=== PATIENT | female | born 2000 | race Caucasian/White ===

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

== ENCOUNTER 2019-12-16 22:45 | Emergency (ER) | payer BC ==
[~2019-12-16] VITALS: Ht 165.1 cm; Wt 54.5 kg
[~2019-12-16 22:45] MED LIST changes: +ALBUTEROL0.83 MG/ML IH; +RT ADVAIR 228 DISKUS IH
[2019-12-16 22:49] VITALS: TEMP 98.2
[2019-12-16 23:47] LABS: STREP SCREEN NEGATIVE
[2019-12-16] MEDS ORDERED: CEPHALEXIN500 M1 PO (23:53)
[2019-12-17 00:12] VITALS: BP 113/76; PULSE 84
== END 2019-12-17 00:12 | disposition home or self-care (01) ==
LOC: COL.ER 22:45
PROVIDERS: Physician Assistant
DX: J02.9 Acute pharyngitis, unspecified (principal); J45.909 Unspecified asthma, uncomplicated; Z79.51 Long term (current) use of inhaled steroids

== ENCOUNTER 2020-12-16 12:39 | Day surgery (SDC) | payer OTHER ==
[2020-12-16] VITALS (7 sets, daily range): BP systolic 100–113; BP diastolic 51–81; PULSE 58–90; TEMP 97.3–98.2
[~2020-12-16] VITALS: Ht 165.1 cm; Wt 57.1 kg
[~2020-12-16 12:39] MED LIST changes: +CEPHALEXIN500 M1 PO
[2020-12-16 13:51] LABS: BASO # 0.1 (0.0-0.2); BASO % 0.8 % (0.0-2.0); EOS # 0.5 (0.0-0.7); EOS % 5.3 % (0-4.0); GRAN # 5.8 (1.4-6.5); GRAN % 58.7 % (42.2-75.2); HEMATOCRIT 43.4 % (37.0-47.0); LYMPH # 2.7 (1.2-3.4); LYMPH % 27.7 % (20.0-51.0); MEAN CELL VOLUME 87 fl (80.0-100.0); MEAN CORPUSCULAR HEMOGLOBIN 28 pg (27.0-31.0); MEAN CORPUSCULAR HGB CONC 32 g/dl (33.0-37.0); MEAN PLATELET VOLUME 9.2 fl (7.4-10.4); MONO # 0.7 (0.1-0.6); MONO % 7.1 % (1.7-9.3); PLATELET COUNT 389 K/mm3 (130-400); REDCELL DISTRIBUTION WIDTH-CV 13.9 % (11.5-14.5)
[2020-12-16 13:56] LABS: ALBUMIN 4.6 gm/dL (3.5-5.0); BILIRUBIN,TOTAL 0.5 mg/dL (0.0-1.0); CALCIUM 9.9 mg/dL (8.4-10.2); CREATININE, serum 0.6 (0.52-1.25); TOTAL PROTEIN 8.3 gm/dL (6.4-8.2)
[2020-12-16] MEDS ORDERED: LEXAPRO 10MG10 MG PO (14:52)
[2020-12-16] MEDS ORDERED: IBU600 MG PO (18:11)
[2020-12-16] MEDS ORDERED: PERCOCET 325 MG1 TA2 PO (18:12)
--- NOTE | 2020-12-16 19:00 | NUR ---
PT IS IN ROOM AT THIS TIME. DENIES ANY PAIN. REQUESTS WATER. ADEQUATE PO INTAKE; PATIENT IV CHANGED TO INT AT THIS TIME. POST OP VITALS IN PROCESS; VS CURRENTLY STABLE. NO FURTHER CONCERNS. PT WILL BE ABLE TO DISCHARGE AFTER POST OPS.
--- NOTE | 2020-12-16 20:30 | NUR ---
PT UP TO VOID. INT TO LEFT WRIST DC'D, ANDIOCATH INTACT.
--- NOTE | 2020-12-16 20:39 | NUR ---
PT READY FOR DC, HAS VOIDED AND DRANK. NO PAIN. BANDAIDS X3 TO ABD, REPLACED LOWER ABD D/T BLEEDING. DISCHARGE INSTRUCTIONS REVIEWED WITH PATIENT. FOLLOW UP WITH DR MAHAN IN 1 WEEK, NO TUB BATHS, HOT TUBS OR POOLS FOR 2 WEEKS. PT VERBALIZED UNDERSTANDING. DISCHARGED TO PRIVATE CAR VIA AMBULATORY STATUS. DISCHARGE INSTRUCTIONS SENT WITH PT WELL PERSONAL BELONGINGS.
== END 2020-12-16 20:40 | disposition home or self-care (01) ==
LOC: SDCO 12:39 → SURG 19:43 → SDCO 20:40
PROVIDERS: Obstetrics & Gynecology
DX: O00.90 Unspecified ectopic pregnancy without intrauterine pregnancy (principal); O99.511 Diseases of the respiratory system complicating pregnancy, first trimester; J45.909 Unspecified asthma, uncomplicated; O99.331 Smoking (tobacco) complicating pregnancy, first trimester; F17.210 Nicotine dependence, cigarettes, uncomplicated; Z20.822 Contact with and (suspected) exposure to COVID-19; Z79.51 Long term (current) use of inhaled steroids; Z79.899 Other long term (current) drug therapy
CPT/HCPCS: OP; J1100; J1885; J2405; J2704; J2710; J2765; J3010; J7120

== ENCOUNTER 2021-11-26 12:06 | Emergency (ER) | payer OTHER ==
[~2021-11-26] VITALS: Ht 165.1 cm; Wt 54.5 kg
[~2021-11-26 12:06] MED LIST changes: +IBU600 MG PO; +LEXAPRO 10MG10 MG PO; +PERCOCET 325 MG1 TA2 PO
[2021-11-26 12:45] VITALS: BP 123/73; TEMP 98.5
[2021-11-26 14:08] VITALS: PULSE 64
== END 2021-11-26 14:09 | disposition home or self-care (01) ==
LOC: COL.ER 12:06
DX: O20.0 Threatened abortion (principal); Z87.891 Personal history of nicotine dependence; Z28.310 Unvaccinated for COVID-19

== ENCOUNTER → 2021-11-27 | Outpatient (CLI) | payer OTHER | LOC: COL.RAD 08:59 | DX: O20.0 Threatened abortion (principal); N83.202 Unspecified ovarian cyst, left side ==

== ENCOUNTER → 2022-02-21 | Outpatient (CLI) | payer MEDICAID | LOC: COL.RAD 12:58 | DX: N97.9 Female infertility, unspecified (principal) | CPT/HCPCS: Q9967 ==

== ENCOUNTER 2023-06-12 22:05 | Emergency (ER) | payer SELFPAY ==
[~2023-06-12] VITALS: Ht 165.1 cm; Wt 51.1 kg
[2023-06-12 22:20] VITALS: BP 126/64; PULSE 69; TEMP 98.5
[2023-06-12] MEDS ORDERED: AMOXICILLIN 50500 MG PO (23:02)
== END 2023-06-12 23:30 | disposition home or self-care (01) ==
LOC: COL.ER 22:05
DX: K02.9 Dental caries, unspecified (principal); S02.5XXA Fracture of tooth (traumatic), initial encounter for closed fracture; X58.XXXA Exposure to other specified factors, initial encounter

== ENCOUNTER 2023-12-26 08:08 | Emergency (ER) | payer SELFPAY ==
[~2023-12-26] VITALS: Ht 165.1 cm; Wt 52.7 kg
[~2023-12-26 08:08] MED LIST changes: +AMOXICILLIN 50500 MG PO
[2023-12-26 08:14] VITALS: TEMP 98.3
[2023-12-26] MEDS ORDERED: ZYRTEC 10MG10 MG PO (08:45)
[2023-12-26 08:50] VITALS: BP 125/77; PULSE 92
== END 2023-12-26 08:53 | disposition home or self-care (01) ==
LOC: COL.ER 08:08
DX: L50.9 Urticaria, unspecified (principal)